=== PATIENT | male | born 1950 | race Caucasian/White ===

== ENCOUNTER 2022-01-02 14:46 | Emergency (ER) | payer OTHER ==
[~2022-01-02] VITALS: Ht 185.4 cm; Wt 106.6 kg
[2022-01-02 14:47] VITALS: BP 150/86
--- NOTE | 2022-01-02 14:58 | NUR ---
PT AMB TO BED 11.
--- NOTE | 2022-01-02 15:36 | NUR ---
dalila Clark at pt bedside.
[2022-01-02 15:51] LABS: BASOPHILS % (AUTO) 0.6 % (0.0-2.0); EOSINOPHILS # (AUTO) 0.2 K/uL (0-0.4); EOSINOPHILS % (AUTO) 4.1 % (0.0-4.0); HEMATOCRIT 38.1 % (36-52); HEMOGLOBIN 13.3 g/dL (12.0-18.0); LYMPHOCYTES # (AUTO) 1.7 K/uL (2.0-11.5); LYMPHOCYTES % (AUTO) 28.4 % (20.5-51.1); MEAN CORPUSCULAR HEMOGLOBIN 31 pg (27-31); MEAN CORPUSCULAR HGB CONC 35 g/dL (33-37); MEAN CORPUSCULAR VOLUME 87.4 fL (80-94); MONOCYTES # (AUTO) 0.5 K/uL (0.8-1.0); MONOCYTES % (AUTO) 8.3 % (1.7-9.3); NEUTROPHILS # (AUTO) 3.4 K/uL (1.8-7.7); NEUTROPHILS % (AUTO) 58.6 % (42.2-75.2); PLATELET COUNT (AUTO) 299 K/uL (140-450); RED BLOOD CELL COUNT(AUTO) 4.36 MIL/uL (4.20-6.10); RED CELL DISTRIBUTION WIDTH 14.3 % (11.6-13.7); WHITE BLOOD COUNT (AUTO) 5.8 K/uL (4.8-10.8)
[2022-01-02 16:05] LABS: ALBUMIN 3.7 g/dL (3.4-5.0); ANION GAP 12.1 (8-16); ASPARTATE AMINOTRANSFERASE 28 U/L (15-37); CARBON DIOXIDE 32.6 mmol/L (21-32); CHLORIDE 99 mmol/L (98-107); CREATININE 1.1 mg/dL (0.6-1.3); GLUCOSE 103 mg/dL (74-106); PROTHROMBIN TIME 10.1 secs (10.8-13.4); SODIUM SERUM 141 mmol/L (136-145); TOTAL BILIRUBIN 0.6 mg/dL (0.0-1.0); UREA NITROGEN, BLOOD 25 mg/dL (7-18)
[2022-01-02 16:12] LABS: POTASSIUM 2.7 mmol/L (3.5-5.1)
[2022-01-02] MEDS ORDERED: POTASSIUM CHLORIDE 10 MEQ TABER PO ONE (16:15)
--- NOTE | 2022-01-02 16:45 | NUR ---
at pt bedside for re-evaluation.
[2022-01-02] MEDS ORDERED: APIX5TAB4 PO (17:02)
[2022-01-02] MEDS ORDERED: POTA10TA70 PO (17:02)
--- NOTE | 2022-01-02 17:32 | NUR ---
Patient discharged with v/s stable. Written and verbal after care instructions given and explained. Patient alert, oriented and verbalized understanding of instructions. Ambulatory with steady gait. All questions addressed prior to discharge. ID band removed. Patient advised to follow up with PMD. Rx of ELIQUIS AND POTASSIUM CHLORIDE given. Patient educated on indication of medication including possible reaction and side effects. Opportunity to ask questions provided and answered.
[2022-01-02 17:33] VITALS: BP 151/92
== END 2022-01-02 17:33 | disposition home or self-care (01) ==
LOC: MED 14:46
DX: I82.409 Acute embolism and thrombosis of unspecified deep veins of unspecified lower extremity (principal); I10 Essential (primary) hypertension; E11.9 Type 2 diabetes mellitus without complications
CPT/HCPCS: 36415; 80053; 85025; 85379; 85610; 85730; 99283

== ENCOUNTER 2022-11-14 00:10 | Inpatient (IN) | payer OTHER ==
[~2022-11-14] VITALS: Ht 185.4 cm; Wt 98.9 kg
[~2022-11-14 00:10] MED LIST: APIX5TAB4 PO; POTA10TA70 PO
[2022-11-14 00:11] VITALS: BP 144/82
--- NOTE | 2022-11-14 00:16 | NUR ---
TO LOBBY FOLLOWING TRIAGE
--- NOTE | 2022-11-14 00:50 | NUR ---
PT TO 11
--- NOTE | 2022-11-14 01:21 | NUR ---
PATIENT ALERT ORIENTED NOT COMPLAINING OF PAIN VITALS SIGNS IN NORMAL LIMITS CAME TODAY FOR NAUSEAS
[2022-11-14] MEDS ORDERED: MORPHINE SULFATE 2 MG/ML SYR IVP STA (01:54)
[2022-11-14] MEDS ORDERED: ONDANSETRON 4 MG/2 ML VIAL IVP ONE (01:55)
--- NOTE | 2022-11-14 02:05 | NUR ---
PT TO CT
[2022-11-14 02:11] LABS: BASOPHILS % (AUTO) 0.3 % (0.0-2.0); EOSINOPHILS # (AUTO) 0.1 K/uL (0-0.4); EOSINOPHILS % (AUTO) 1.2 % (0.0-4.0); HEMATOCRIT 38.6 % (36-52); HEMOGLOBIN 13.2 g/dL (12.0-18.0); LYMPHOCYTES # (AUTO) 0.6 K/uL (2.0-11.5); LYMPHOCYTES % (AUTO) 10.6 % (20.5-51.1); MEAN CORPUSCULAR HEMOGLOBIN 30 pg (27-31); MEAN CORPUSCULAR HGB CONC 34 g/dL (33-37); MONOCYTES # (AUTO) 0.4 K/uL (0.8-1.0); MONOCYTES % (AUTO) 6.4 % (1.7-9.3); NEUTROPHILS # (AUTO) 4.6 K/uL (1.8-7.7); NEUTROPHILS % (AUTO) 81.5 % (42.2-75.2); PLATELET COUNT (AUTO) 214 K/uL (140-450); RED BLOOD CELL COUNT(AUTO) 4.48 MIL/uL (4.20-6.10); RED CELL DISTRIBUTION WIDTH 16.7 % (11.6-13.7); WHITE BLOOD COUNT (AUTO) 5.6 K/uL (4.8-10.8)
[2022-11-14 02:24] LABS: ALBUMIN 2.8 g/dL (3.4-5.0); ANION GAP 8.8 (8-16); ASPARTATE AMINOTRANSFERASE 15 U/L (15-37); CARBON DIOXIDE 35.8 mmol/L (21-32); CHLORIDE 94 mmol/L (98-107); CREATININE 1.2 mg/dL (0.6-1.3); GLUCOSE 173 mg/dL (74-106); LIPASE 40 U/L (73-393); POTASSIUM 3.6 mmol/L (3.5-5.1); SODIUM SERUM 135 mmol/L (136-145); TOTAL BILIRUBIN 0.8 mg/dL (0.0-1.0); UREA NITROGEN, BLOOD 35 mg/dL (7-18)
--- NOTE | 2022-11-14 03:40 | NUR ---
Transfer of care from Sixto JENNINGS. Per report, pt c/o nausea starting this morning. NG tube , in place with intermittent suctioning. Alert and responsive. No c/o discomfort at this time.
[2022-11-14] MEDS ORDERED: NACL 0.9% 1,000 ML IV ONE (04:50)
--- NOTE | 2022-11-14 05:08 | NUR ---
Pt in bed, no c/o nausea at this time. NG tube at intermittent suctioning with moderate amount of output. Denies discomfort.
--- NOTE | 2022-11-14 06:26 | NUR ---
Pt resting comfortably at this time, no s/s distress. no c/o discomfort.
[2022-11-14] MEDS ORDERED: TAMS0.4C96 PO (06:39)
[2022-11-14] MEDS ORDERED: METF-713 PO (06:39)
[2022-11-14] MEDS ORDERED: ACETAMINOPHEN 325 MG TAB PO PRN (07:25)
[2022-11-14] MEDS ORDERED: MAG SULF 2000 MG/WATER PREMIX 50 ML IV PRN (07:25)
[2022-11-14] MEDS ORDERED: MORPHINE SULFATE 2 MG/ML SYR IVP PRN (07:25)
[2022-11-14] MEDS ORDERED: ZOLPIDEM 10 MG TAB PO PRN (07:25)
[2022-11-14] MEDS ORDERED: ONDANSETRON 4 MG/2 ML VIAL IVP PRN (07:25)
[2022-11-14] MEDS ORDERED: DOCUSATE SODIUM 100 MG GELCAP PO PRN (07:25)
[2022-11-14] MEDS ORDERED: INSULIN LISPRO SLIDING SCALE 100 UNITS/ML VIAL SUBQ PRN (07:30)
[2022-11-14] MEDS ORDERED: DEXTROSE 50% 50 ML SYR IVP PRN (07:30)
--- NOTE | 2022-11-14 07:30 | NUR ---
received pt in [facility] aox4. ngtube to LIS with coffee ground drainage noted. iv intact and patent infusing fluids per order. nad. pending med surg bed. safety maintained
[2022-11-14] MEDS: NACL 0.9% 1,000 ML IV SCH ×2 (07:44→21:43)
[2022-11-14] MEDS: BLOOD GLUCOSE MONITORING 1 DEV DEV FS SCH ×4 (08:04→20:35)
[2022-11-14] MEDS: TAMSULOSIN 0.4 MG CAP PO SCH (09:18)
--- NOTE | 2022-11-14 11:00 | NUR ---
pt resting in [place] no changes noted. nad. safety maintained.
--- NOTE | 2022-11-14 13:00 | NUR ---
dr rosenbaum at bedside for consult
--- NOTE | 2022-11-14 14:30 | NUR ---
PT ADMITTED TO 112 A BEDSIDE REPORT GIVEN TO RN, PT STABLE FOR TX
--- NOTE | 2022-11-14 16:00 | NUR ---
admitted patient from ED, alert and oriented to name, place and situation, not in any form of distress, NGT to R nares inplaced to LIWS with dark greenish drainage noted, patient complains of abdominal pain rated 7/10, medicated with relief, plan of care discussed, verbalized understanding.
--- NOTE | 2022-11-14 16:54 | NUR ---
PATIENT HAS BEEN SCREENED AND CATEGORIZED MODERATE NUTRITION RISK. PATIENT WILL BE SEEN WITHIN 3-5 DAYS OF ADMISSION. REVIEWED BY LASHON BARRAZA RD
--- NOTE | 2022-11-14 19:20 | NUR ---
RECEIVED REPORT FROM AM NURSE. PATIENT AWAKE, ALERT ORIENTED ON ROOM AIR. NO DISTRESS NOTED. NGT ON THE RIGHT NARES CONNECTED TO LOW INTERMITTENT WALL SUCTION WITH GREENISH OUTPUT. NO COMPLAINTS OF PAIN. IVF INFUSING 70 ML/HR ON THE RAC 20 G. CALL LIGHT WITHIN REACH. SAFETY MEASURES IN PLACE.
--- NOTE | 2022-11-14 20:35 | NUR ---
CHECKED BLOOD SUGAR WAS 142 NO INSULIN COVERAGE NEEDED.
[2022-11-15] VITALS: BP 156/82
--- NOTE | 2022-11-15 05:00 | NUR ---
PATIENT GOWN SOILED, REFUSED TO BE CHANGED.
[2022-11-15] MEDS: BLOOD GLUCOSE MONITORING 1 DEV DEV FS SCH ×4 (06:30→21:37)
[2022-11-15 06:46] LABS: ANION GAP 13.1 (8-16); CARBON DIOXIDE 31.5 mmol/L (21-32); CHLORIDE 98 mmol/L (98-107); CREATININE 1.3 mg/dL (0.6-1.3); GLUCOSE 166 mg/dL (74-106); POTASSIUM 3.6 mmol/L (3.5-5.1); SODIUM SERUM 139 mmol/L (136-145); UREA NITROGEN, BLOOD 43 mg/dL (7-18)
[2022-11-15 06:56] LABS: RED BLOOD CELL COUNT(AUTO) 4.22 MIL/uL (4.20-6.10)
[2022-11-15 06:57] LABS: HEMATOCRIT 36.7 % (36-52); HEMOGLOBIN 12.4 g/dL (12.0-18.0); MEAN CORPUSCULAR HEMOGLOBIN 29 pg (27-31); MEAN CORPUSCULAR HGB CONC 34 g/dL (33-37); MEAN CORPUSCULAR VOLUME 86.9 fL (80-94); PLATELET COUNT (AUTO) 221 K/uL (140-450); RED CELL DISTRIBUTION WIDTH 16.6 % (11.6-13.7)
[2022-11-15 06:58] LABS: BASOPHILS % (AUTO) 0.1 % (0.0-2.0); EOSINOPHILS % (AUTO) 0.5 % (0.0-4.0); LYMPHOCYTES # (AUTO) 0.5 K/uL (2.0-11.5); LYMPHOCYTES % (AUTO) 8.8 % (20.5-51.1); MONOCYTES # (AUTO) 0.4 K/uL (0.8-1.0); MONOCYTES % (AUTO) 6.3 % (1.7-9.3); NEUTROPHILS # (AUTO) 5.1 K/uL (1.8-7.7); NEUTROPHILS % (AUTO) 84.3 % (42.2-75.2)
--- NOTE | 2022-11-15 07:14 | NUR ---
GAVE REPORT TO DAY SHIFT NURSE FOR CONTINUITY OF CARE.
[2022-11-15 08:00] VITALS: BP 165/97
[2022-11-15] MEDS: TAMSULOSIN 0.4 MG CAP PO SCH (08:03)
[2022-11-15] MEDS ORDERED: BENZOCAINE 20% 57 GM CAN MC PRN (10:05)
[2022-11-15] MEDS: NACL 0.9% 1,000 ML IV SCH (12:01)
[2022-11-15] MEDS: LORazepam 2 MG/ML VIAL IVP PRN (13:54)
[2022-11-15 16:00] VITALS: BP 166/92
--- NOTE | 2022-11-15 17:30 | NUR ---
MULTIPLE X-RAY DONE FOR NGT PLACEMENT VERIFICATION, ADVANCED R NARE NGT PER RADIOLOGIST RECOMMENDATION BUT STILL NOT IN THE RIGHT PLACEMENT. R NARE NGT REMOVED AND PLACED A NEW ONE TO LEFT NARE. PATIENT TOLERATED WELL. X-RAY ORDERED TO VERIFY PLACEMENT.
[2022-11-15 20:00] VITALS: BP 156/87
--- NOTE | 2022-11-15 21:05 | NUR ---
Patient's Plan of Care was discussed and reviewed with DIRECTOR OF EPIDEMIOLOGY: BAUTISTA VILLEGAS
--- NOTE | 2022-11-15 21:10 | NUR ---
AT BEDSIDE WITH PATIENT. PATIENT APPEARS TO HAVE RESPIRATORY DISTRESS, WITH CLEAR BREATH SOUNDS BUT IS SATING AT 84-85%. PUT PATIENT ON 3L NASAL CANNULA AND PATIENT IS NOW SATING AT 96%. WILL CONTINUE TO MONITOR.
--- NOTE | 2022-11-15 21:18 | NUR ---
RECEIVED REPORT FROM NURSE BAUTISTA. PATIENT AWAKE IN BED ON O2 3L NC SATING 95%. NO SOB. NGT IN THE LEFT NARES. DENIES PAIN. CALL LIGHT IN REACH. IVF NS INFUSING 70 ML/HR IN THE LAC. SAFETY MEASURES IN PLACE.
--- NOTE | 2022-11-16 00:20 | NUR ---
IV LINE WAS LEAKING. STARTED A NEW IV ON THE RIGHT FOREARM WITH GOOD RETURN OF BLOOD. TOLERATED WELL.
[2022-11-16] MEDS: NACL 0.9% 1,000 ML IV SCH ×2 (01:00→17:16)
--- NOTE | 2022-11-16 04:06 | NUR ---
PATIENT BP-187/116 P-[address] VALERIO, AWAITING FOR REPLY.
--- NOTE | 2022-11-16 04:11 | NUR ---
PATIENT BP-187/116 P-94. 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
--- NOTE | 2022-11-16 04:22 | NUR ---
DR GILLILAND TEXTED BACK WITH ORDERS NOTED , CARRIED OUT.
[2022-11-16] MEDS ORDERED: hydrALAZINE 20 MG/ML VIAL ONE (04:23)
[2022-11-16] MEDS: hydrALAZINE 20 MG/ML VIAL IVP PRN ×3 (04:25→17:17)
[2022-11-16] MEDS: BLOOD GLUCOSE MONITORING 1 DEV DEV FS SCH ×4 (06:31→20:53)
[2022-11-16 07:00] LABS: EOSINOPHILS % (AUTO) 0.2 % (0.0-4.0); HEMATOCRIT 37.3 % (36-52); HEMOGLOBIN 12.6 g/dL (12.0-18.0); LYMPHOCYTES # (AUTO) 0.6 K/uL (2.0-11.5); MEAN CORPUSCULAR HEMOGLOBIN 29 pg (27-31); MEAN CORPUSCULAR HGB CONC 34 g/dL (33-37); MEAN CORPUSCULAR VOLUME 87.2 fL (80-94); MONOCYTES # (AUTO) 0.5 K/uL (0.8-1.0); MONOCYTES % (AUTO) 8.3 % (1.7-9.3); NEUTROPHILS # (AUTO) 5.1 K/uL (1.8-7.7); NEUTROPHILS % (AUTO) 82.5 % (42.2-75.2); PLATELET COUNT (AUTO) 226 K/uL (140-450); RED BLOOD CELL COUNT(AUTO) 4.27 MIL/uL (4.20-6.10); RED CELL DISTRIBUTION WIDTH 16.6 % (11.6-13.7); WHITE BLOOD COUNT (AUTO) 6.2 K/uL (4.8-10.8)
--- NOTE | 2022-11-16 07:01 | NUR ---
receive aox4 rm 112A with admitting diagnosis of partial distal bowel obstruction . still on nasogastric tube for intermittent suction . will continue to monitor
[2022-11-16 07:05] LABS: CARBON DIOXIDE 29.9 mmol/L (21-32); CHLORIDE 103 mmol/L (98-107); CREATININE 0.9 mg/dL (0.6-1.3); GLUCOSE 117 mg/dL (74-106); SODIUM SERUM 144 mmol/L (136-145); UREA NITROGEN, BLOOD 32 mg/dL (7-18)
--- NOTE | 2022-11-16 07:30 | NUR ---
GAVE REPORT TO MORNING SHIFT NURSE TAMMI FOR CONTINUITY OF CARE.
--- NOTE | 2022-11-16 07:37 | NUR ---
BEDSIDE REPORT GIVEN TO DAY SHIFT NURSE VILLA FOR CONTINUITY OF CARE. Addendum: 11/16/22 at 0738 by Brianna Marrero RN RN WRONG PATIENT.
[2022-11-16 08:00] VITALS: BP 180/96
[2022-11-16 08:01] LABS: POTASSIUM 2.9 mmol/L (3.5-5.1)
--- NOTE | 2022-11-16 08:38 | NUR ---
the potassium level of the patinet was low today being 2.9 . replace porassium with 40 meq potassium tablets . the blood pressure was also 181/96 . the rn also gave hydralize PRN for sbp above sbp 160
[2022-11-16] MEDS: TAMSULOSIN 0.4 MG CAP PO SCH (08:54)
[2022-11-16] MEDS: POTASSIUM CHLORIDE 10 MEQ TABER PO PRN (08:54)
--- NOTE | 2022-11-16 10:41 | NUR ---
the patinet nasogastric tube was accidentally pulled out whan he was going to bedside commode . the rn immediately inserted nasogastric tube on left nares . ordered stat chest xray to verify placement .
--- NOTE | 2022-11-16 11:30 | NUR ---
the nasogastric tube was verified in place . the rn immediately turn the suction intermittently
--- NOTE | 2022-11-16 16:40 | NUR ---
gave hydralazine for sbp 186/78 . will continue to monitor .
--- NOTE | 2022-11-16 16:40 | NUR ---
blood sugar check of 88mg/dl . gave orange juice went to 115mg/dl . will continue to monitor
[2022-11-16 17:55] VITALS: BP 187/98
--- NOTE | 2022-11-16 18:40 | NUR ---
will endorse to night monitor rn for continuity of care
--- NOTE | 2022-11-16 19:20 | NUR ---
PATIENT LYING ON THE BED, DENIES PAIN, NO SIGNS OF DISTRESS NOTED, ON O2 @3 LPM NC. NGT ON LEFT NARES. ALL SAFETY MEASURES IN PLACE.
--- NOTE | 2022-11-16 20:53 | NUR ---
BLOOD SUGAR IS 125 MG/DL, NO INSULIN COVERAGE.
[2022-11-17] VITALS: BP 189/101
[2022-11-17] MEDS: hydrALAZINE 20 MG/ML VIAL IVP PRN ×2 (00:16→08:17)
--- NOTE | 2022-11-17 00:16 | NUR ---
PATIENT'S BP 189/101 MMHG, PRN HYDRALAZINE GIVEN ORDERED. WILL CONTINUE TO MONITOR THE PATIENT.
--- NOTE | 2022-11-17 03:35 | NUR ---
PATIENT'S NGT GOT PULLED, PATIENT REFUSED TO HAVE IT REINSERTED, PATIENT STATED "MUCHO DOLOR". MD WAS NOTIFIED, AWAITING RESPONSE.
[2022-11-17 04:00] VITALS: BP 189/101
--- NOTE | 2022-11-17 05:45 | NUR ---
DR. GILLILAND MADE AWARE THAT PATIENT IS REFUSING TO HAVE NGT REINSERTED. NO NEW ORDERS. WILL CONTINUE TO MONITOR THE PATIENT.
[2022-11-17] MEDS: NACL 0.9% 1,000 ML IV SCH (06:18)
[2022-11-17] MEDS: BLOOD GLUCOSE MONITORING 1 DEV DEV FS SCH ×4 (06:33→20:58)
[2022-11-17 07:16] LABS: ANION GAP 14.3 (8-16); CARBON DIOXIDE 27.6 mmol/L (21-32); CHLORIDE 108 mmol/L (98-107); CREATININE 0.8 mg/dL (0.6-1.3); GLUCOSE 109 mg/dL (74-106); SODIUM SERUM 147 mmol/L (136-145); UREA NITROGEN, BLOOD 24 mg/dL (7-18)
[2022-11-17 07:17] LABS: BASOPHILS % (AUTO) 0.1 % (0.0-2.0); EOSINOPHILS % (AUTO) 0.7 % (0.0-4.0); HEMATOCRIT 37.3 % (36-52); HEMOGLOBIN 12.3 g/dL (12.0-18.0); LYMPHOCYTES # (AUTO) 0.8 K/uL (2.0-11.5); LYMPHOCYTES % (AUTO) 12.8 % (20.5-51.1); MEAN CORPUSCULAR HEMOGLOBIN 29 pg (27-31); MEAN CORPUSCULAR HGB CONC 33 g/dL (33-37); MEAN CORPUSCULAR VOLUME 87.4 fL (80-94); MONOCYTES # (AUTO) 0.6 K/uL (0.8-1.0); MONOCYTES % (AUTO) 10.1 % (1.7-9.3); NEUTROPHILS # (AUTO) 4.6 K/uL (1.8-7.7); NEUTROPHILS % (AUTO) 76.3 % (42.2-75.2); PLATELET COUNT (AUTO) 225 K/uL (140-450); RED BLOOD CELL COUNT(AUTO) 4.27 MIL/uL (4.20-6.10); RED CELL DISTRIBUTION WIDTH 16.9 % (11.6-13.7)
[2022-11-17 07:24] LABS: POTASSIUM 2.9 mmol/L (3.5-5.1)
--- NOTE | 2022-11-17 07:30 | NUR ---
ENDORSED PATIENT TO DAY NURSE FOR CONTINUITY OF CARE. PATIENT IN STABLE CONDITION.
[2022-11-17] MEDS: TAMSULOSIN 0.4 MG CAP PO SCH (08:14)
[2022-11-17] MEDS: POTASSIUM CHLORIDE 10 MEQ TABER PO PRN (08:15)
[2022-11-17] MEDS ORDERED: CLONIDINE HYDROCHLORIDE 0.1 MG TAB PO SCH (10:15)
[2022-11-17] MEDS: LORazepam 2 MG/ML VIAL IVP PRN (11:59)
--- NOTE | 2022-11-17 12:13 | NUR ---
BP 163/89, HR 87 AFTER 1 TIME DOSE CLONIDINE PER MD ORDER. ADMINISTERED PRN ATIVAN FOR C/O ANXIETY. BLOOD SUGAR 93. DR. GILLILAND AWARE. NEW ORDER FOR HYDRALAZINE 10 MG PO Q12HRS. ORDER VERIFIED. PT RESTING IN BED, AT BEDSIDE. RESPIRATIONS EVEN AND UL, NO DISTRESS. CALL LIGHT IN REACH, SAFETY MEASURES IN PLACE.
[2022-11-17 16:00] VITALS: BP 150/88
[2022-11-17] MEDS ORDERED: DEXT 5% / NACL 0.9% 1,000 ML IV SCH (17:55)
--- NOTE | 2022-11-17 19:15 | NUR ---
PATIENT RESTING IN BED, AAO x4, NO C/O PAIN/DISCOMFORT AT THIS TIME. RESPIRATIONS EVEN AND UL. ALL NEEDS MET. SAFETY MEASURES IN PLACE, CALL LIGHT IN REACH. ENDORSED TO PM NURSE FOR CONTINUITY OF CARE.
--- NOTE | 2022-11-17 19:20 | NUR ---
RECEIVED PATIENT RESTING ON THE BED, NO SIGNS OF DISTRESS NOTED, NO SIGNS OF PAIN/DISCOMFORT NOTED, PATIENT IS ALERT AND ORIENTED, CALL LIGHT WITHIN REACH.
[2022-11-17 20:00] VITALS: BP 161/87
[2022-11-17] MEDS: hydrALAZINE 10 MG TAB PO SCH (21:39)
--- NOTE | 2022-11-17 21:40 | NUR ---
SCHEDULED MEDICATION GIVEN ORDERED
--- NOTE | 2022-11-17 22:55 | NUR ---
IV D5NS STARTED @50ML/HR ORDERED ON LEFT FOREARM IV SITE. NO SIGNS OF PAIN/DISCOMFORT NOTED, NO SIGNS OF DISTRESS NOTED. CALL LIGHT WITHIN REACH.
[2022-11-18 04:00] VITALS: BP 155/81
--- NOTE | 2022-11-18 04:10 | NUR ---
VITALS TEMP 97.6, P 87, BP 155/81, RESP 16 AND SAT @96% ON 3LPM NC.
[2022-11-18 06:33] LABS: BASOPHILS % (AUTO) 0.6 % (0.0-2.0); EOSINOPHILS # (AUTO) 0.1 K/uL (0-0.4); EOSINOPHILS % (AUTO) 1.9 % (0.0-4.0); HEMATOCRIT 36.7 % (36-52); HEMOGLOBIN 12.4 g/dL (12.0-18.0); LYMPHOCYTES # (AUTO) 1.1 K/uL (2.0-11.5); LYMPHOCYTES % (AUTO) 19.6 % (20.5-51.1); MEAN CORPUSCULAR HEMOGLOBIN 29 pg (27-31); MEAN CORPUSCULAR HGB CONC 34 g/dL (33-37); MEAN CORPUSCULAR VOLUME 86.9 fL (80-94); MONOCYTES # (AUTO) 0.6 K/uL (0.8-1.0); MONOCYTES % (AUTO) 10.4 % (1.7-9.3); NEUTROPHILS # (AUTO) 3.8 K/uL (1.8-7.7); NEUTROPHILS % (AUTO) 67.5 % (42.2-75.2); PLATELET COUNT (AUTO) 245 K/uL (140-450); RED BLOOD CELL COUNT(AUTO) 4.22 MIL/uL (4.20-6.10); RED CELL DISTRIBUTION WIDTH 17.2 % (11.6-13.7); WHITE BLOOD COUNT (AUTO) 5.6 K/uL (4.8-10.8)
[2022-11-18] MEDS: BLOOD GLUCOSE MONITORING 1 DEV DEV FS SCH ×4 (06:34→21:45)
[2022-11-18 06:56] LABS: ANION GAP 15.8 (8-16); CARBON DIOXIDE 25.3 mmol/L (21-32); CHLORIDE 112 mmol/L (98-107); CREATININE 0.8 mg/dL (0.6-1.3); GLUCOSE 100 mg/dL (74-106); POTASSIUM 3.1 mmol/L (3.5-5.1); SODIUM SERUM 150 mmol/L (136-145); UREA NITROGEN, BLOOD 24 mg/dL (7-18)
--- NOTE | 2022-11-18 07:32 | NUR ---
ENDORSED PATIENT TO DAY NURSE FOR CONTINUITY CARE. PATIENT IN STABLE CONDITION.
[2022-11-18] MEDS: TAMSULOSIN 0.4 MG CAP PO SCH (09:55)
[2022-11-18] MEDS: hydrALAZINE 10 MG TAB PO SCH ×3 (09:55→21:46)
[2022-11-18] MEDS: POTASSIUM CHLORIDE 10 MEQ TABER PO PRN (09:57)
[2022-11-18] MEDS: DEXT 5% / NACL 0.45% 1,000 ML IV SCH (10:35)
[2022-11-18] MEDS: amLODIPine 5 MG TAB PO SCH (10:40)
[2022-11-18] MEDS ORDERED: POTASSIUM CHLORIDE 40 MEQ, LIDOCAINE 1% 25 MG in NACL 0.9% 250 ML IV SCH (11:00)
[2022-11-18 16:00] VITALS: BP 157/92
[2022-11-19] VITALS: BP 167/89
[2022-11-19] MEDS: DEXT 5% / NACL 0.45% 1,000 ML IV SCH (01:28)
[2022-11-19] MEDS: hydrALAZINE 10 MG TAB PO SCH ×2 (05:41→13:00)
[2022-11-19 07:40] LABS: BASOPHILS % (AUTO) 0.2 % (0.0-2.0); EOSINOPHILS # (AUTO) 0.1 K/uL (0-0.4); EOSINOPHILS % (AUTO) 1.8 % (0.0-4.0); HEMATOCRIT 35.1 % (36-52); HEMOGLOBIN 11.8 g/dL (12.0-18.0); LYMPHOCYTES # (AUTO) 0.9 K/uL (2.0-11.5); LYMPHOCYTES % (AUTO) 15.2 % (20.5-51.1); MEAN CORPUSCULAR HEMOGLOBIN 29 pg (27-31); MEAN CORPUSCULAR HGB CONC 34 g/dL (33-37); MONOCYTES # (AUTO) 0.5 K/uL (0.8-1.0); MONOCYTES % (AUTO) 9.1 % (1.7-9.3); NEUTROPHILS # (AUTO) 4.3 K/uL (1.8-7.7); NEUTROPHILS % (AUTO) 73.7 % (42.2-75.2); PLATELET COUNT (AUTO) 271 K/uL (140-450); RED BLOOD CELL COUNT(AUTO) 4.03 MIL/uL (4.20-6.10); WHITE BLOOD COUNT (AUTO) 5.8 K/uL (4.8-10.8)
[2022-11-19 07:45] LABS: ANION GAP 13.8 (8-16); CARBON DIOXIDE 25.2 mmol/L (21-32); CHLORIDE 111 mmol/L (98-107); CREATININE 0.6 mg/dL (0.6-1.3); GLUCOSE 109 mg/dL (74-106); SODIUM SERUM 147 mmol/L (136-145); UREA NITROGEN, BLOOD 19 mg/dL (7-18)
[2022-11-19] MEDS: BLOOD GLUCOSE MONITORING 1 DEV DEV FS SCH ×2 (08:26→11:30)
[2022-11-19] MEDS: POTASSIUM CHLORIDE 10 MEQ TABER PO PRN (09:20)
[2022-11-19] MEDS: TAMSULOSIN 0.4 MG CAP PO SCH (09:20)
[2022-11-19] MEDS: amLODIPine 5 MG TAB PO SCH (09:20)
--- NOTE | 2022-11-19 15:08 | NUR ---
11/19/22 RD INITIAL ASSESSMENT COMPLETED PLEASE REFER TO NUTRITION ASSESSMENT UNDER CARE ACTIVITY FOR ESTIMATED NUTRITIONAL NEEDS. 1. CONTINUE CLEAR LIQUID DIET TOLERATED 2. WHEN/IF MEDICALLY APPROPRIATE RECOMMEND CCHO 60 GM DIET TOLERATED 3. PROVIDED NUTRITION EDUCATION AND HANDOUTS FOR DM 4. MONITOR PO INTAKE AND NUTRITION RELATED LAB VALUES 5. RD TO FOLLOW-UP 3-5 DAYS, MODERATE RISK REVIEWED BY LASHON BARRAZA RD
[2022-11-19] MEDS ORDERED: APR10 PO (17:09)
[2022-11-19 17:16] VITALS: BP 140/89
--- NOTE | 2022-11-19 18:30 | NUR ---
PATIENT DISCHARGED HOME WITH FAMILY. STABLE UPON DISCHARGE
== END 2022-11-19 18:20 | disposition home or self-care (01) | DRG 388 ==
LOC: MED 00:10 → MMU 07:25 → MTU 07:25
PROVIDERS: ADMIT Family Medicine; ATTEND Family Medicine
PROC: 0D9670Z Drainage of Stomach with Drainage Device, Via Natural or Artificial Opening (ICD-10-PCS; principal; 2022-11-14)
DX: K56.690 Other partial intestinal obstruction (principal); N17.0 Acute kidney failure with tubular necrosis; E44.0 Moderate protein-calorie malnutrition; E87.1 Hypo-osmolality and hyponatremia; E87.3 Alkalosis; J98.11 Atelectasis; E11.9 Type 2 diabetes mellitus without complications; I10 Essential (primary) hypertension; Z20.822 Contact with and (suspected) exposure to COVID-19; N40.0 Benign prostatic hyperplasia without lower urinary tract symptoms; E88.09 Other disorders of plasma-protein metabolism, not elsewhere classified; Z86.718 Personal history of other venous thrombosis and embolism; Z79.01 Long term (current) use of anticoagulants; Z87.891 Personal history of nicotine dependence; Z68.28 Body mass index [BMI] 28.0-28.9, adult
CPT/HCPCS: 36415; 71045; 74018; 74021; 74250; 80048; 80053; 82948; 83690; 83735; 85025; 87081; 96374; 96375; 99291; J0360; J2001; J2060; J2270; J2405; J3480; J7030; Q0092